=== PATIENT | female | born 1990 | race Caucasian/White ===

== ENCOUNTER 2016-07-16 19:06 | Emergency (ER) | payer BC, MEDICAID ==
[~2016-07-16] VITALS: Ht 162.6 cm; Wt 95.3 kg
[~2016-07-16 19:06] MED LIST: CIPR-211 PO; IBUP-1480 PO; OXYC-130 PO
[2016-07-16 19:12] VITALS: BP 120/86; PULSE 135; RESP 16; TEMP 97.6; O2SAT 99
== END 2016-07-16 21:13 | disposition left against medical advice (07) ==
LOC: SED 19:06
DX: R10.13 Epigastric pain (principal); Z53.21 Procedure and treatment not carried out due to patient leaving prior to being seen by health care provider
CPT/HCPCS: 93005; 99281

== ENCOUNTER 2017-05-25 07:36 | Emergency (ER) | payer MEDICAID ==
[~2017-05-25] VITALS: Ht 162.6 cm; Wt 90.7 kg
[2017-05-25 07:40] VITALS: BP_SYST 138
== END 2017-05-25 08:04 | disposition home or self-care (01) ==
LOC: SED 07:36
DX: R05 Cough (principal); Z90.49 Acquired absence of other specified parts of digestive tract
CPT/HCPCS: 99283

== ENCOUNTER 2018-07-09 08:39 | Emergency (ER) | payer MEDICAID ==
[~2018-07-09] VITALS: Ht 162.6 cm; Wt 90.7 kg
[~2018-07-09 08:39] MED LIST changes: -IBUP-1480 PO; +IBUP800T54 PO
[2018-07-09 09:02] VITALS: BP_SYST 133
--- NOTE | 2018-07-09 09:04 | NUR ---
Patient to ER bed 08 to gown for evaluation. Side rails up.
--- NOTE | 2018-07-09 09:05 | NUR ---
Pt brought by self , c/o R shoulder pain, denies trauma, skin pink and warm, cap refill <3, VSS.will continue to monitor.
--- NOTE | 2018-07-09 09:20 | NUR ---
ER Dr. AYALA at bedside examining patient.
[2018-07-09] MEDS ORDERED: HYDROcodone/ACETAMIN 10-325 MG TAB PO ONE (09:30)
[2018-07-09] MEDS ORDERED: IBUPROFEN 800 MG TABLET PO ONE (09:30)
[2018-07-09 09:45] LABS: HEMATOCRIT 44.2 % (36-48); HEMOGLOBIN 14.7 g/dL (12.0-16.0); LYMPHOCYTES % (AUTO) 24.1 % (20.5-51.5); MEAN CORPUSCULAR HEMOGLOBIN 29 pg (27-31); MEAN CORPUSCULAR HGB CONC 33 % (32-36); MEAN CORPUSCULAR VOLUME 86 fL (79.0-98.0); MONOCYTES % (AUTO) 8.1 % (1.7-9.3); NEUTROPHILS % (AUTO) 66.9 % (40.0-70.0); PLATELET COUNT (AUTO) 278 K/uL (130-430); RED BLOOD CELL COUNT(AUTO) 5.13 MIL/uL (4.2-6.2); RED CELL DISTRIBUTION WIDTH 14.3 % (9.0-15.0); WHITE BLOOD COUNT (AUTO) 10.1 K/uL (4.8-10.8)
[2018-07-09 09:46] LABS: BASOPHILS # (AUTO) 0.1 K/uL (0.0-0.2); BASOPHILS % (AUTO) 0.7 % (0.0-2.0); EOSINOPHILS % (AUTO) 0.2 % (0.0-4.0); LYMPHOCYTES # (AUTO) 2.4 K/uL (1.0-5.5); MONOCYTES # (AUTO) 0.8 K/uL (0.0-1.0); NEUTROPHILS # (AUTO) 6.7 K/uL (1.8-7.7)
[2018-07-09 10:16] LABS: CALCIUM 9.4 mg/dL (8.4-11.0); CREATININE 0.89 mg/dL (0.55-1.30); POTASSIUM 3.4 mmol/L (3.5-5.1)
[2018-07-09 10:17] LABS: ALBUMIN 4.1 g/dL (3.4-4.8)
[2018-07-09 10:18] LABS: TOTAL BILIRUBIN 0.6 mg/dL (0.0-1.0)
[2018-07-09 10:21] LABS: PROTHROMBIN TIME 10.3 SECS (9.5-12.5)
--- NOTE | 2018-07-09 10:37 | NUR ---
PATIENT SITTING IN CHAIR AT BEDSIDE ON CELL PHONE WITH NO SIGNS OF DISTRESS. PATIENT SAID HER PAIN IN SHOULDER IS DOING BETTER AND FINALLY GOING AWAY.
--- NOTE | 2018-07-09 11:07 | NUR ---
Patient given written and verbal discharge instructions and verbalizes understanding. ER MD discussed with patient the results and treatment provided. Patient in stable condition. ID arm band removed. Rx of Motrin and [place] given. Patient educated on pain management and to follow up with PMD. Pain Scale 4/10 tolerable. Sling for arm given. Opportunity for questions provided and answered. Medication side effect fact sheet provided.
[2018-07-09 11:08] VITALS: BP_SYST 145
== END 2018-07-09 11:08 | disposition home or self-care (01) ==
LOC: SED 08:39
DX: M25.511 Pain in right shoulder (principal); Z79.899 Other long term (current) drug therapy
CPT/HCPCS: 36415; 73030; 80053; 81025; 84550-TC; 85025; 85610-TC; 85730-TC; 86140; 99284

== ENCOUNTER 2018-08-18 09:15 | Emergency (ER) | payer MEDICAID ==
[~2018-08-18] VITALS: Ht 162.6 cm; Wt 90.7 kg
[2018-08-18 09:15] VITALS: BP_SYST 129
--- NOTE | 2018-08-18 09:15 | NUR ---
BROUGHT BACK TO BED #7 AND TRIAGED. REPORT GIVEN TO HELLEN
--- NOTE | 2018-08-18 09:25 | NUR ---
ER Dr. MYERS at bedside examining patient.
--- NOTE | 2018-08-18 09:28 | NUR ---
PATIENT SITTING UP ON BED. AAOx4. RESPIRATIONS EVEN AND UNLABORED. NO SOB. DENIES OF ANY CHEST PAIN, HEADCHE, DIZZINESS, NAUSEA, VOMITING, FEVERS, NUMBNESS, OR TINGLING. PT WITH C/O RIGHT SHOULDER PAIN x5 MONTHS. RIGHT SHOULDER WITH GOOD ROM. PT STATES THAT THERE IS NO PAIN WHEN RIGHT SHOULDER IS IMMOBILIZED AND THE PAIN ONLY PRESENT UPON MOVEMENT. DENIES OF ANY RECENT TRAUMA OR INJURY. PT ALSO WITH C/O "BUMPS INSIDE HER NOSE." DENIES OF ANY NASAL PAIN, NO NASAL TRAUMA. PATIENT IN NO ACUTE DISTRESS. NO S/SX OF PAIN OBSERVED. PT CURRENTLY ON HER CELL PHONE. REST AND RELAXATION ENCOURAGED. AWAITING MD ORDERS. Addendum: 08/18/18 at 0931 by [email or web address] NO SHOULDER DEFORMITY NOTED.
[2018-08-18 09:45] VITALS: BP_SYST 129
[2018-08-18] MEDS ORDERED: KETOROLAC TROMETHAMINE 60 MG/2 ML VIAL IM ONE (09:45)
--- NOTE | 2018-08-18 09:45 | NUR ---
Patient given written and verbal discharge instructions and verbalizes understanding. ER MD discussed with patient the results and treatment provided. Patient in stable condition. ID arm band removed. Rx of NAPROSYN given. Patient educated on pain management and to follow up with PMD. Pain Scale 0/10; NO OBJECTIVE S/SX OF PAIN OBSERVED. Opportunity for questions provided and answered. Medication side effect fact sheet provided. PATIENT REFUSED TORADOL IM FOR RIGHT SHOULDER PAIN. PT STATES, "I DON'T NEED IT." MD MADE AWARE. PATIENT IN GOOD CONDITION AND IN NO ACUTE DISTRESS. PT NOTED WITH A STABLE GAIT.
== END 2018-08-18 09:45 | disposition home or self-care (01) ==
LOC: SED 09:15
DX: G89.29 Other chronic pain (principal); M25.511 Pain in right shoulder; F32.9 Major depressive disorder, single episode, unspecified; Z79.899 Other long term (current) drug therapy
CPT/HCPCS: 99282; J1885

== ENCOUNTER 2023-06-13 22:37 | Emergency (ER) | payer MEDICAID, OTHER ==
[~2023-06-13] VITALS: Ht 162.6 cm; Wt 104.3 kg
[~2023-06-13 22:37] MED LIST changes: -CIPR-211 PO; +CIPR500T5 PO
[2023-06-13 22:41] VITALS: BP_SYST 113; PULSE 121; RESP 18; TEMP 98.6; O2SAT 99
[2023-06-13 23:32] LABS: BASOPHILS % (AUTO) 0.3 % (0.0-2.0); EOSINOPHILS % (AUTO) 0.2 % (0.0-4.0); HEMATOCRIT 39.3 % (36-48); HEMOGLOBIN 13.4 g/dL (12.0-16.0); LYMPHOCYTES # (AUTO) 1.7 K/uL (1.0-5.5); LYMPHOCYTES % (AUTO) 10.6 % (20.5-51.5); MEAN CORPUSCULAR HEMOGLOBIN 30 pg (27-31); MEAN CORPUSCULAR HGB CONC 34 % (32-36); MEAN CORPUSCULAR VOLUME 88 fL (79.0-98.0); MONOCYTES # (AUTO) 1.7 K/uL (0.0-1.0); NEUTROPHILS # (AUTO) 12.3 K/uL (1.8-7.7); NEUTROPHILS % (AUTO) 77.9 % (40.0-70.0); PLATELET COUNT (AUTO) 172 K/uL (130-430); RED BLOOD CELL COUNT(AUTO) 4.48 MIL/uL (4.2-6.2); RED CELL DISTRIBUTION WIDTH 13.8 % (9.0-15.0); WHITE BLOOD COUNT (AUTO) 15.7 K/uL (4.8-10.8)
[2023-06-13 23:36] LABS: CALCIUM 8.7 mg/dL (8.4-11.0); POTASSIUM 3.3 mmol/L (3.5-5.1)
[2023-06-13 23:53] LABS: BILIRUBIN,DIRECT 0.8 mg/dL (0.0-0.3); TOTAL BILIRUBIN 2.4 mg/dL (0.0-1.0); TOTAL PROTEIN, SERUM 6.7 g/dL (6.4-8.3)
[2023-06-14] MEDS ORDERED: MORPHINE 4 MG INJ. 4 MG/ML VIAL IM ONE (00:15)
[2023-06-14 00:34] LABS: BILIRUBIN,URINE 2+ (NEGATIVE); BLOOD, URINE 2+ (NEGATIVE); CLARITY/URINE CLEAR (CLEAR); COLOR,URINE YELLOW (YELLOW); GLUCOSE,URINE NEGATIVE (NEGATIVE); KETONES,URINE 1+ (NEGATIVE); LEUKOCYTE ESTERASE ,URINE 3+ (NEGATIVE); NITRITE, URINE POSITIVE (NEGATIVE); PROTEIN URINE 2+ (NEGATIVE)
[2023-06-14 00:59] LABS: BARBITURATE, URINE NEGATIVE (NEG <=200)
[2023-06-14 01:00] LABS: BENZODIAZEPINE, URINE NEGATIVE (NEG <=150); COCAINE, URINE POSITIVE (NEG <=150); METHAMPHETAMINES SCREEN,URINE POSITIVE (NEG <=500); URINE AMPHETAMINE POSITIVE (NEG <=500); URINE METHADONE NEGATIVE (NEG <=200)
[2023-06-14 01:01] LABS: CANNABINOID, URINE NEGATIVE (NEG <=50); PHENCYCLIDINE SCREEN,URINE NEGATIVE (NEG <=25)
[2023-06-14 01:03] LABS: OPIATE, URINE NEGATIVE (NEG <=100); UR TRICYCLIC ANTIDEPRESSANTS NEGATIVE (NEG <=300); URINE OXYCODONE SCREEN NEGATIVE (NEG <=100)
[2023-06-14 01:07] LABS: BACTERIA,URINE MANY /HPF (None Seen); RBC,URINE >100 /HPF (0-3); WBC,URINE >100 /HPF (0-3)
[2023-06-14] MEDS ORDERED: cefTRIAXone 1 GM in LIDOCAINE 1%, 20 ML MDV 2.1 ML IM ONE (01:15)
[2023-06-14] MEDS ORDERED: NAPR-1172 PO (01:29)
[2023-06-14] MEDS ORDERED: CIPR500T5 PO (01:29)
[2023-06-14 01:33] VITALS: BP_SYST 112; PULSE 112; RESP 19; O2SAT 96
== END 2023-06-14 01:33 | disposition home or self-care (01) ==
LOC: SED 22:37
DX: N39.0 Urinary tract infection, site not specified (principal); F15.129 Other stimulant abuse with intoxication, unspecified; F14.129 Cocaine abuse with intoxication, unspecified; F12.90 Cannabis use, unspecified, uncomplicated; Z79.899 Other long term (current) drug therapy
CPT/HCPCS: 99285; 71045; 80307; 80076; 80048; 85025; 87040; 87086; 36415; 93005; 83605; 81000; 81001; 96374; 96372; 81015; J0696; J2270; J2001